=== PATIENT | male | born 1985 | race Caucasian/White ===

== ENCOUNTER 2023-10-21 20:05 | Emergency (ER) | payer OTHER ==
[2023-10-21] MEDS ORDERED: DIPHTH,PERTUSS(ACELL),TET 0.5 ML DISP.SYRIN IM ONE (20:22)
[2023-10-21] MEDS: DIPHTH,PERTUSS(ACELL),TET 0.5 ML DISP.SYRIN IM ONE (20:24)
[2023-10-21 20:36] VITALS: BP 135/82; PULSE 72; RESP 16; TEMP 97.9; BMI 25.6
[2023-10-21] MEDS ORDERED: CEPHALEXIN MONOHYDRATE 500 MG CAPSULE (UD) ONE (20:42)
[2023-10-21] MEDS: CEPHALEXIN MONOHYDRATE 500 MG CAPSULE (UD) PO ONE (20:43)
== END 2023-10-21 20:46 | disposition home or self-care (01) ==
LOC: FER 20:05
PROC: 0HQGXZZ Repair Left Hand Skin, External Approach (ICD-10-PCS; principal; 2023-10-21)
PROC: 3E0234Z Introduction of Serum, Toxoid and Vaccine into Muscle, Percutaneous Approach (ICD-10-PCS; 2023-10-21)
DX: S61.012A Laceration without foreign body of left thumb without damage to nail, initial encounter (principal); W27.5XXA Contact with paper-cutter, initial encounter
CPT/HCPCS: 90715; 99283-25